=== PATIENT | female | born 1965 | race Caucasian/White ===

== ENCOUNTER 2025-02-11 11:38 | Emergency (ER) | payer OTHER, BC, SELFPAY ==
[2025-02-11] VITALS (16 sets, daily range): BP systolic 133–168; BP diastolic 71–85; PULSE 56–72; RESP 13–19; TEMP 36.8; O2SAT 92–98; BMI 27.1
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
--- NOTE | 2025-02-11 13:11 | CRLHL7_ITS ---
For Patients: As a result of the Century Cures Act, medical imaging exams and procedure reports are released immediately into your electronic medical record. You may view this report before your referring provider. If you have questions, please contact your health care provider. Indication: lower central back pain on exam Technique: Noncontrast axial CT of the thoracic spine with coronal and sagittal reformats are provided. Comparison: No prior studies available for comparison at this institution. Findings: Normal thoracic spine alignment. There is mild loss of T4 and T5 vertebral height with sclerotic changes along the superior endplates compatible with acute compression fractures. Less than 10 percent loss of vertebral height. No retropulsed fragment. No aggressive osseous lesions. Mild atelectasis at lung bases. No suspicious disc bulge or herniation. No significant spinal canal stenosis or neural foramina narrowing. Bilateral parapelvic renal cysts. Impression : 1. Acute T4 and T5 superior endplate compression fractures with minimal loss of vertebral body height. No retropulsed fragment. 2. No significant spinal canal stenosis or neural foraminal narrowing. 3. Bilateral parapelvic renal cysts. Please note that all CT scans at this facility use dose modulation, iterative reconstruction, and/or weight-based dosing when appropriate to reduce radiation dose to as low as reasonably achievable. Dictated by Alton Finn MD @ 02/11/2025 2:58:39 PM (Electronically Signed)
[2025-02-11 14:10] LABS: Hematocrit 43.3 % (33.0-51.0); Hemoglobin* 14.4 gm/dL (12.0-16.0); Immature Granulocytes Abs Auto 0.05 K/uL (0.00-0.30); Immature Granulocytes Pct Auto 0.6 %; Lymphocytes Absolute Auto 1.99 K/uL (0.90-2.90); Mean Corpuscular HGB Conc 33 gm/dL (32-36); Mean Corpuscular Hemoglobin 30 pg (26-34); Mean Corpuscular Volume 91 fL (80-100); RDW Coefficient of Variation % 12.4 % (11.5-15.5); Red Blood Count 4.75 m/uL (4.00-5.20); White Blood Count* 9.00 K/uL (4.50-11.00)
[2025-02-11 14:13] LABS: Albumin* 4.1 g/dL (3.3-5.0); Chloride* 103 mmol/L (96-114); Potassium* 3.8 mmol/L (3.6-5.1); Sodium* 135 mmol/L (135-149)
[2025-02-11 14:16] LABS: Alanine Aminotransferase* 25 U/L (4-35); Alkaline Phosphatase* 108 U/L (40-150); Anion Gap 5 mEq/L (7-15); Aspartate Amino Transferase* 27 U/L (12-35); Bilirubin Direct* 0.2 mg/dL (0.0-0.5); Bilirubin Total* 1.2 mg/dL (0.1-1.5); Blood Urea Nitrogen* 16 mg/dL (7-30); Carbon Dioxide* 27 mmol/L (20-32); Creatinine* 0.6 mg/dL (0.5-1.5); Est. Creatinine Clearance* 80.83; Estimated Glomerular Filt Rate 104 ml/min; Slide Review Reflex No; Total Protein* 7.2 g/dL (6.0-8.3)
[2025-02-11 14:17] LABS: Calcium* 9.5 mg/dL (8.4-10.6); Glucose* 187 mg/dL (60-115)
[2025-02-11 14:27] LABS: NT Pro B Type NatriureticPept* 121 pg/mL (See Note)
[2025-02-11] MEDS: ONDANSETRON 2 MG/ML inj 4 MG IVP (14:40)
--- OUTSIDE RECORDS SUMMARY | 2025-02-11 14:45 | XMS_ITS | Clinical Summary ---
Author Organization [facility] Address [address] [place] [address] Care Team Providers Care Equity Holder Name Role Phone Evy You PA-C, Miesha Primary Care Provider [phone]- [phone] Source Comments You are receiving this document as you are listed as the primary care provider,follow-up provider, or the patient has been referred to you for consultation.This is in compliance with the Medicare andMedicaid EHR Incentive Program,which states Providers who transition their patient to another setting of careor provider of care or refers their patient to another provider of care shouldprovide summary care record for each transition of care or referral. [facility] Allergies Active Allergy Reactions Criticality Noted Date Comments Hydrocodone-Acetaminophen Rash 09/21/2006 Medications nicotine (NICORETTE) 2 MG gum Use as directed 30 Each 6 03/12/2016 Active sertraline (ZOLOFT) 100 MG tablet TAKE 1 TABLET DAILY (EVERY 24 HOURS) 90 Tab 3 06/02/2016 Active acyclovir (ZOVIRAX) 200 MG capsule TAKE ONE CAPSULE BY MOUTH 5 TIMES A DAY NEEDED FOR UPTO 10 DAYS 50 Cap 2 06/30/2016 Active Active Problems Problem Noted Date Diagnosed Date Cyst of perineum of female 08/24/2014 Overview (01/15/2016): 4 mm, NT, firm at introitus. Benign appearing Depression 08/21/2014 Anxiety 08/21/2014 Tobacco use 09/27/2013 Herpes labialis 10/20/2011 Resolved Problems Problem Noted Date Diagnosed Date Resolved Date Anxiety state 07/11/2009 10/20/2011 Overview (02/03/2017): Anxiety NOS Depressive disorder 02/10/2006 10/20/19 12 Overview (02/03/2017): Depression NOS Condyloma acuminatum 02/10/2006 013 Overview (02/03/2017): Condyloma HPV Tobacco use disorder 02/10/2006 012 Overview (02/03/2017): Tobacco Abuse Immunizations Immunization Administration Dates Next Due Flu Vac Preserv Free (3+yrs) 07/19/2006 HepB Adult (Engerix-B, 20+ y rs, 3 dose series) 02/10/2006,09/23/2004,06/18/2004 Influenza IIV4 (Quadrivalent) 0.5mL (69273) 02/13 TDAP (ADACEL) 10/20/2011 Td 01/02/1999 Family History Medical History Relation Name Comments Coronary Artery Disease Father quad bypass Hypertension Father Coronary Artery Disease Mother Diabetes Mother Hypertension Mother Diabetes Other multiple siblin gs Lung Disease Sister 2 2009 decreased from copd complication Cancer, Breast Negative Family History Cancer, Colon Negative Family History Hyperlipidemia Negative Family History Osteoporosis Negative Family History Thyroid Disorder Negative Family History Relation Name Status Comments Father 2009 Mother 2011 Other Sister 1 2009 from copd complications Sister 2 Social History Tobacco Use Types Packs/Day Years Used Date Smoking Tobacco: Some Days Cigarettes Smokeless Tobacco: Never Tobacco Cessation:Ready to Q uit: Yes Comments:Quit smokin Alcohol Use Standard Drinks/Week Comments No 1 (1 standard drink = 0.6 oz pur e alcohol) 1x a month or less Comments No Sex and Gender Information Value Date Recorded Sex Assigned at Not on file Legal Sex Female 4:47 AM CDT Gender Identity Not on file Sexual Orientation Not on file 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 file Not on file Not on file Last Filed Vital Signs Vital Sign Reading Time Taken Comments Blood Pressure 133/60 04/30/2016 1:10 PM SLABBING MACHINE OPERATOR Pulse 62 04/30/2016 1:10 PM SLABBING MACHINE OPERATOR Temperature 37.2 C (99 F) 10/10/2013 9:38 AM CDT Respiratory Rate 12 04/30/2016 1:10 PM SLABBING MACHINE OPERATOR Oxygen Saturation 96% 04/30/2016 1:10 PM SLABBING MACHINE OPERATOR Inhaled Oxygen Concentration - - Weight 67.6 kg (149 lb) 04/30/2016 12:26 PM SLABBING MACHINE OPERATOR Height 157.5 cm (5' 2) 04/30/2016 12:26 PM SLABBING MACHINE OPERATOR Body Mass Index 27.25 04/30/2016 12:26 PM SLABBING MACHINE OPERATOR Plan of Treatment Health Maintenance Due Date Last Done Comments Adult Preventive Visit 06/08/1997 06/08/1996 Cervical Cancer Screening Due 09/15/2012 09/14/2012, 10/20/2011, 02/10/2006, Additional history exists Mammogram 08/18/2015 08/17/2014 (Completed) Pneumococcal Vaccine 50+ Yrs (1 of 1 - PCV) 2016 Zoster/Shingles Vaccine (1 of 2) 2016 Cholesterol 02/02/2020 02/01/2015, 05/0 01/2012, 02/22/2006, Additional history exists Colonoscopy 04/30/2021 04/30/2016 DTaP/Tdap/Td Vaccine (2 - Tdap) 10/19/2021 10/20/2011, 01/02/1999 COVID-19 Vaccine (1 - 2023- season) 2024 Influenza Vaccine (#1) 2025 03/12/2016, 2006 HIV Screening (Preventive Services) Completed 06/18/2004 Hep C Screening (Preventive Services) Completed 06/18/2004 HepB Vaccine Completed 02/10/2006, 09/12, 06/18/2004 HepA Vaccine Aged Out No longer eligi ble based on patient's age to complete this topic Hib Vaccine Aged Out No longer eligi ble based on patient's age to complete this topic IPV (Polio) Vaccine Aged Out No longe r eligible based on patient's age to complete this topic MCV4 Vaccine Aged Out No longer eligi ble based on patient's age to complete this topic Meningococcal B Vaccine Aged Out No l onger eligible based on patient's age to complete this topic Procedures Procedure Name Priority Date/Time Associated Diagnosis Comments ENDOSCOPY, COLON, SCREENING/DIAGNOSTIC Routine 04/30/2016 6:29 AM SLABBING MACHINE OPERATOR Screen for colon cancer LIPID PANEL & DIRECT LDL (IF NEEDED) Routine 02/01/2015 12:53 PM CDT Well adult exam ANATOMICAL PATH LIQUID BASED Routine 09/14/2012 2:13 PM CDT HIV ANTIBODY Routine 06/18/2004 5:02 PM SLABBING MACHINE OPERATOR HEPATITIS C ANTIBODY, WITH REFLEX (ANTI-HCV) Routine 06/18/2004 5:02 PM SLABBING MACHINE OPERATOR from Last 3 Months or Most Recently Relevant to Health Maintenance Results * Endoscopy, colon, diagnostic (04/30/2016 6:29 AM SLABBING MACHINE OPERATOR) Anatomical Region Laterality Modality Other 04/30/2016 6:29 AM SLABBING MACHINE OPERATOR Narrative 04/30/2016 6:29 AM SLABBING MACHINE OPERATOR Patient Name: Keshia Rodgers Procedure Date: 04/30/2016 6:29 AM Date of : 1965 Admit Type: Outpatient Age: 51 Gender: Female Note Status: Finalized Attending MD: Yordy Reyna MD Procedure: Colonoscopy and polypectomy Indications: Colon cancer screening in patient at increased risk: Family history of 1st-degree relative with colon polyps before age 60 years (brother at age 50, also sister at age 67) Providers: Yordy Reyna MD, Kaylee Estrada RN Referring MD: Miesha Gorman MD Medicines: Midazolam 4 mg IV, Fentanyl 150 micrograms IV Complications: No immediate complications. Estimated blood loss: None. Procedure: Pre-Anesthesia Assessment: - ASA Grade Assessment: II - A patient with mild systemic disease. - After reviewing the risks and benefits, the patient was deemed in satisfactory condition to undergo the procedure. - The anesthesia plan was to use moderate sedation/analgesia (conscious sedation). - Immediately prior to administration of medications, the patient was re-assessed for adequacy to receive sedatives. - Sedation was administered by an endoscopy nurse. The sedation level attained was moderate. - The heart rate, respiratory rate, oxygen saturations, blood pressure, adequacy of pulmonary ventilation, and response to care were monitored throughout the procedure. - The physical status of the patient was re-assessed after the procedure. After I obtained informed consent, the scope was passed under direct vision. Throughout the procedure, the patient's blood pressure, pulse, and oxygen saturations were monitored continuously. The [id number] was introduced through the anus and advanced to the terminal ileum, with identification of the appendiceal orifice and IC valve. The colonoscopy was performed without difficulty. The patient tolerated the procedure well. The quality of the bowel preparation was excellent. Findings: The perianal and digital rectal examinations were normal. The terminal ileum appeared normal. A few medium-mouthed diverticula were found in the sigmoid colon. There was no evidence of diverticular bleeding. Three flat polyps were found in the distal sigmoid colon. The polyps were 2 to 3 mm in size. These polyps were removed with a cold biopsy forceps. Resection and retrieval were complete. Verification of patient identification for the specimen was done by the physician and nurse. Estimated blood loss: none. The exam was otherwise without abnormality on direct and retroflexion views. Multiple small angioectasias without bleeding were found in the proximal ascending colon and distal rectum. Impression: - The examined portion of the ileum was normal. - Diverticulosis in the sigmoid colon. There was no evidence of diverticular bleeding. - Three 2 to 3 mm polyps in the distal sigmoid colon. Resected and retrieved. - The examination was otherwise normal on direct and retroflexion views. Recommendation: - If any polyp is villous or all three are adenomatous, colonoscopy in three years; in any other case, in five years. Procedure Code(s): --- Professional --- 61634, Colonoscopy, flexible; with biopsy, single or multiple Diagnosis Code(s): --- Professional --- K57.30, Diverticulosis of large intestine without perforation or abscess without bleeding D12.5, Benign neoplasm of sigmoid colon Z83.71, Family history of colonic polyps CPT copyright 2014 [employer]. All rights reserved. The codes documented in this report are preliminary and upon community education specialist review may be revised to meet current compliance requirements. Yordy Reyna MD 04/30/2016 1:17:05 PM Number of Addenda: 0 Note Initiated On: 04/30/2016 6:29 AM Endoscopy Report Procedure Note Yordy Reyna MD - 04/30/2016 Patient Name: Kehsia Rodgers Procedure Date: 04/30/2016 6:29 AM Date of : 1965 Admit Type: Outpatient Age: 51 Gender: Female Note Status: Finalized Attending MD: Yordy Reyna MD Procedure: Colonoscopy and polypectomy Indications: Colon cancer screening in patient at increased risk: Family history of 1st-degree relative with colon polyps before age 60 years (brother at age 50, also sister at age 67) Providers: Yordy Reyna MD, Kaylee Estrada RN Referring MD: Miesha Gorman MD Medicines: Midazolam 4 mg IV, Fentanyl 150 micrograms IV Complications: No immediate complications. Estimated blood loss: None. Procedure: Pre-Anesthesia Assessment: - ASA Grade Assessment: II - A patient with mild systemic disease. - After reviewing the risks and benefits, the patient was deemed in satisfactory condition to undergo the procedure. - The anesthesia plan was to use moderate sedation/analgesia (conscious sedation). - Immediately prior to administration of medications, the patient was re-assessed for adequacy to receive sedatives. - Sedation was administered by an endoscopy nurse. The sedation level attained was moderate. - The heart rate, respiratory rate, oxygen saturations, blood pressure, adequacy of pulmonary ventilation, and response to care were monitored throughout the procedure. - The physical status of the patient was re-assessed after the procedure. After I obtained informed consent, the scope was passed under direct vision. Throughout the procedure, the patient's blood pressure, pulse, and oxygen saturations were monitored continuously. The [id number] was introduced through the anus and advanced to the terminal ileum, with identification of the appendiceal orifice and IC valve. The colonoscopy was performed without difficulty. The patient tolerated the procedure well. The quality of the bowel preparation was excellent. Findings: The perianal and digital rectal examinations were normal. The terminal ileum appeared normal. A few medium-mouthed diverticula were found in the sigmoid colon. There was no evidence of diverticular bleeding. Three flat polyps were found in the distal sigmoid colon. The polyps were 2 to 3 mm in size. These polyps were removed with a cold biopsy forceps. Resection and retrieval were complete. Verification of patient identification for the specimen was done by the physician and nurse. Estimated blood loss: none. The exam was otherwise without abnormality on direct and retroflexion views. Multiple small angioectasias without bleeding were found in the proximal ascending colon and distal rectum. Impression: - The examined portion of the ileum was normal. - Diverticulosis in the sigmoid colon. There was no evidence of diverticular bleeding. - Three 2 to 3 mm polyps in the distal sigmoid colon. Resected and retrieved. - The examination was otherwise normal on direct and retroflexion views. Recommendation: - If any polyp is villous or all three are adenomatous, colonoscopy in three years; in any other case, in five years. Procedure Code(s): --- Professional --- 54701, Colonoscopy, flexible; with biopsy, single or multiple Diagnosis Code(s): --- Professional --- K57.30, Diverticulosis of large intestine without perforation or abscess without bleeding D12.5, Benign neoplasm of sigmoid colon Z83.71, Family history of colonic polyps CPT copyright 2014 [employer]. All rights reserved. The codes documented in this report are preliminary and upon community education specialist review may be revised to meet current compliance requirements. Yordy Reyna MD 04/30/2016 1:17:05 PM Number of Addenda: 0 Note Initiated On: 04/30/2016 6:29 AM Endoscopy Report Miesha You PA-C ET GI PROCEDURE ORDERABLES Final Result * Lipid Panel and Direct LDL(If Needed) (02/01/2015 12:53 PM CDT) Cholesterol 178 0 - 200 mg/dL HP CONVERSION Triglycerides 48 0 - 149 mg/dL HP CONVERSION HDL Cholesterol 46 >39 mg/dL HP CONVERSION Cholesterol/HDL Ratio Screen 3.9 HP CONVERSION LDL Calculated 122 19 - 130 mg/dL HP CONVERSION Hours Fasting 12.0 HP CONVERSION 02/01/2015 12:5 3 PM CDT 02/01/2015 5:38 PM CDT Narrative HP CONVERSION - 02/01/2015 6:18 PM CDT Performed at [facility], [address] [place], [place] [id number] Miesha You PA-C LAB_1 Final Resu lt HP CONVERSION * Pap Smear (09/14/2012 2:13 PM CDT) 09/14/2012 2:13 PM CDT Narrative HP CONVERSION - 09/21/2012 3:54 PM CDT FINAL GYNECOLOGICAL CYTOLOGY REPORT Pathology #: [id number] Date Obtained: 09/14/2012 Date Received: 09/15/2012 INTERPRETATION/RESULTS: Negative for Intraepithelial Lesion or Malignancy COMMENTS: HPV results to follow. SPECIMEN ADEQUACY: Satisfactory for Evaluation. Endocervical cells/transformation zone component present. Verified on 09/21/2012 by JUANA MARION MD (electronic signature) CLINICAL NOTES: LMP: Not Stated LIQUID BASED PAP SMEAR SPECIMEN TYPE: CERVICAL AND HPV REGARDLESS OF PAP RESULT PLEASE NOTE: The pap smear is a screening test designed to aid in the detection of cervical cancer and its precursor lesions. It is not a diagnostic procedure and should not be used as the sole means of detecting cervical cancer. Both false-positive and false-negative reports may occur. End of Report Transcriptions 07/24/2016 8:23 AM CSTNotes Recorded by Jacqueline Arndt PA-C on 09/23/2012 at 7:33 AMReviewed pap and hpv testing, letter done, sent to staff for printing and distribution. Jacqueline Arndt PA-C LAB_1 Final Result Performing Organization Address City/[facility]/ZIP Co de Phone Number HP CONVERSION * HIV Antibody (06/18/2004 5:02 PM SLABBING MACHINE OPERATOR) HIV 1/HIV 2 Non Reac Non Reac HP CONVERSION 06/18/2004 5:02 PM SLABBING MACHINE OPERATOR Rosalie Pritchett MD LAB_1 Missy l Result HP CONVERSION * Hepatitis C Antibody, with Reflex (06/18/2004 5:02 PM SLABBING MACHINE OPERATOR) Hepatitis C Antibody Non Reac Non Reac HP CONVERSION 06/18/2004 5:02 PM SLABBING MACHINE OPERATOR us Rosalie Pritchett MD LAB_1 Missy vizcarra Result HP CONVERSION from Last 3 Months or Most Recently Relevant to Health Maintenance Advance Directives * Full Code (Latest Code Status on File) Date Activated Date Inactivated Comments 10/03/2013 9:24 AM 10/03/2013 3:23 PM Care Teams Equity Holder Relationship Specialty Start Date End Date Miesha Ratliff PA-C [address] [facility] [address] [place] [address] PCP - General 09/13/10
--- OUTSIDE RECORDS SUMMARY | 2025-02-11 14:45 | XMS_ITS | Encounter Summary ---
Author Organization [email or web address] Address [address] [address] Care Team Providers Care Curing Bin Operator Name Role Phone Evy You PA-C, Maria Primary Care Provider +1- [phone] Encounter Details Date Type Department Care Team (Latest Contact Info) Description 11/24/1994 Orders Only Bill Cheng MD [address] [place], [place] [id number] Social History Tobacco Use Types Packs/Day Years Used Date Smoking Tobacco: Never Assessed Comments Unknown Sex and Gender Information Value Date Recorded Sex Assigned at Not on file Legal Sex Female 4:47 AM CDT Gender Identity Not on file Sexual Orientation Not on file documented as of this encounter Plan of Treatment Not on file documented as of this encounter Visit Diagnoses Not on filedocumented in this encounter Care Teams Curing Bin Operator Relationship Specialty Start Date End Date Miesha Ratliff PA-C [address] [facility] [address] [place] [address] PCP - General 09/13/10 documented as of this encounter
--- OUTSIDE RECORDS SUMMARY | 2025-02-11 14:45 | XMS_ITS | Encounter Summary ---
Author Organization [employer] Address [address] [address] Care Team Providers Care Dredge Deckhand Name Role Phone Evy You PA-C, Maria Primary Care Provider +1- [phone] Encounter Details Date Type Department Care Team (Latest Contact Info) Description 05/14/1995 Orders Only Juanita Mosley APRN, CNM [address] [facility] [address] [place] [id number] Social History Tobacco Use Types Packs/Day Years [...] on filedocumented in this encounter Care Teams Dredge Deckhand Relationship Specialty Start Date End Date Miesha Ratliff PA-C [address] [facility] [address] [facility] [place] [address] PCP - General 09/13/10 documented as of this encounter
--- OUTSIDE RECORDS SUMMARY | 2025-02-11 14:45 | XMS_ITS | Clinical Summary ---
Author Organization [employer] [facility] Address [address] [place] [address] Care Team Providers Care Paint Roller Covers Supervisor Name Role Phone None Primary Care Provider Unavailabl e Allergies Active Allergy Reactions Criticality Noted Date Comments Hydrocodone Rash 04/15/2017 Oxycodone Headache 07/08/2017 Medications sertraline (ZOLOFT) 100 mg tablet Take 150 mg by mouth once daily. 06/02/2016 Active acyclovir (ZOVIRAX) 200 mg capsule Take 200 mg by mouth 5 times daily. As needed 06/30/2016 Active ferrous sulfate, 65 mg elemental, (IRON) tablet Take 325 mg by mouth once daily with a meal. Active PSYLLIUM SEED, WITH DEXTROSE, (FIBER ORAL) Take by mouth. Active meloxicam 15 mg tabletIndicatio ns:Plantar fasciitis of right foot Take 1 Tablet (15 mg) by mouth once daily. 30 Tablet 01/03/2025 Active Problems Problem Noted Date Diagnosed Date Complete tear of right rotator cuff 06/24/2017 Resolved Problems Problem Noted Date Diagnosed Date Resolved Date Incomplete tear of right rotator cuff 04/15/2017 06/24/2017 Encounters Date Type Department Care Team Description 01/03/2025 2:50 PM CDT Ancillary Procedure [facility] [address] [address] 01/03/2025 2:45 PM CDT Office Visit [facility] [address] [address] Blayne Bunch MD Foot Pain/problem (Right foot ) 01/03/2025 Travel from Last 3 Months Family History Medical History Relation Name Comments Cancer-breast No Family History Cancer-colon No Family History Cancer-ovarian No Family History Cancer-prostate No Family History Social History Tobacco Use Types Packs/Day Years Used Date Smoking Tobacco: Former Cigarettes Q uit: 08/23/2016 Smokeless Tobacco: Never Alcohol Use Standard Drinks/Week Comments Yes 0 (1 standard drink = 0.6 oz pur e alcohol) rarely Comments Unknown Sex and Gender Information Value Date Recorded Sex Assigned at Not on file Legal Sex Female 6:50 AM NEWS DIRECTOR Gender Identity Not on file Sexual Orientation Not on file Obstetrics History Last Filed Vital Signs Vital Sign Reading Time Taken Comments Blood Pressure 120/68 09/16/2017 2:01 PM CDT Pulse 81 06/22/2017 12:00 PM NEWS DIRECTOR Temperature 36.7 C (98 F) 06/22/2017 12:00 PM NEWS DIRECTOR Respiratory Rate 16 06/22/2017 12:00 PM NEWS DIRECTOR Oxygen Saturation 93% 06/22/2017 12:00 PM NEWS DIRECTOR Inhaled Oxygen Concentration - - Weight 83 kg (183 lb) 09/16/2017 2:01 PM CDT Height 160 cm (5' 3) 06/21/2017 9:00 AM NEWS DIRECTOR Body Mass Index 32.42 06/21/2017 9:00 AM NEWS DIRECTOR Plan of Treatment Health Maintenance Due Date Last Done Comments Tetanus booster 1977 Depression screening for age 12+ 1978 HIV for age 15-65 1981 Hepatitis C screening for age 18-79 1984 Hepatitis B series for 19+ ( 1 of 3 - 19+ 3-dose series) 1985 Pap test for age 21-65 1987 Colonoscopy through age 75 2011 Lipids for age 45-75 2011 Mammogram for age 45-75 08/18/2015 08/17/2014 Pneumococcal series for age 50+ (1 of 1 - PCV) 2016 Zoster (shingles) series for age 50+ (1 of 2) 2016 BMI (ht and wt on same day) for age 18+ 04/15/2018 1 06/15/2016 COVID-19 vaccine series ( season) 2024 02/19/2021, 01/22/2021 Influenza Vaccine (#1) 2025 RSV vaccine for adults or pr egnancy (1 - 1-dose 75+ series) 2041 Procedures Procedure Name Priority Date/Time Associated Diagnosis Comments XR FOOT 3 VIEWS RIGHT Routine 01/03/2025 2:52 PM CDT Chronic foot pain, right XR MAMMO BILAT SCREEN FFDM (IA) Routine 08/17/2014 3:38 PM NEWS DIRECTOR Other screening mammogram from Last 3 Months or Most Recently Relevant to Health Maintenance Results * XR FOOT 3 VIEWS RIGHT (01/03/2025 2:52 PM CDT) Anatomical Region Laterality Modality FEET, FOOT R Digital Radiogra phy 01/08/2025 7:46 AM CDT Impressions 01/08/2025 7:46 AM CDT 1. Hallux valgus with bunion. 2. Multi partite medial sesamoid bone. 3. Calcaneal spurring. Dictated by Rob Cedeno MD @ 01/08/2025 7:46:29 AM (Electronically Signed) Narrative 01/08/2025 7:46 AM CDT For Patients: As a result of the Cures Act, medical imaging exams and procedure reports are released immediately into your electronic medical record. You may view this report before your referring provider. If you have questions, please contact your health care provider. HISTORY: Chronic right foot pain. TECHNIQUE: Three views of the right foot. COMPARISON: No prior. FINDINGS: Mild hallux valgus with bunion. Multi partite medial sesamoid bone. Lateral sesamoid bone intact. Plantar calcaneal spur. Spurring at the Achilles attachment to posterior calcaneus. No significant joint space narrowing. No acute fracture. Procedure Note Rob Cedeno MD - 01/08/2025 For Patients: As a result of the Cures Act, medical imagingexams and procedure reports are released immediately into your electronicmedical record. You may view this report before your referring provider.If you have questions, please contact your health care provider. HISTORY: Chronic right foot pain. TECHNIQUE: Three views of the right foot. COMPARISON: No prior. FINDINGS: Mild hallux valgus with bunion. Multi partite medial sesamoid bone.Lateral sesamoid bone intact. Plantar calcaneal spur. Spurring at theAchilles attachment to posterior calcaneus. No significant joint spacenarrowing. No acute fracture. IMPRESSION: 1. Hallux valgus with bunion. 2. Multi partite medial sesamoid bone. 3. Calcaneal spurring. Dictated by Rob Cedeno MD @ 01/08/2025 7:46:29 AM (Electronically Signed) us Blayne Bunch MD GENERAL IMAGING Final Result * XR MAMMO BILAT SCREEN FFDM (08/17/2014 3:38 PM NEWS DIRECTOR) Anatomical Region Laterality Modality BREASTS, Breast Left, Breast Right Bilateral Mammography Impressions 08/18/2014 9:38 AM NEWS DIRECTOR There is no radiographic evidence for malignancy. Recommend annual mammograms. A lay language report of this examination will be provided to the patient. MAMMOGRAM ASSESSMENT: ACR 1 Negative Narrative 08/18/2014 9:38 AM NEWS DIRECTOR XR MAMMO BILAT SCREEN FFDM [G0202.0] CLINICAL HISTORY: This is an asymptomatic 49 y.o. patient. INDICATION FOR EXAM: Mammogram Screening. TECHNIQUE: CC & MLO views were obtained. This digital study was evaluated with the assistance of Computer-Aided Detection. COMPARISON FILM: Yes 07/04/04 LINDSAY LEWIS 02/22/06 LINDSAY LEWIS FINDINGS: Mammographically, the breast tissue has scattered fibroglandular densities. There are no dominant masses, suspicious micro calcifications or areas of architectural distortion. Procedure Note Mike Lawson MD - 08/18/2014 XR MAMMO BILAT SCREEN FFDM [G0202.0] CLINICAL HISTORY: This is an asymptomatic 49 y.o. patient. INDICATION FOR EXAM: Mammogram Screening. TECHNIQUE: CC & MLO views were obtained. This digital study was evaluatedwith the assistance of Computer-Aided Detection. COMPARISON FILM: Yes 07/04/04 LINDSAY GRIMESLLET 02/22/06 LINDSAY LEWIS FINDINGS: Mammographically, the breast tissue has scatteredfibroglandular densities. There are no dominant masses, suspicious microcalcifications or areas of architectural distortion. IMPRESSION: There is no radiographic evidence for malignancy. Recommendannual mammograms. A lay language report of this examination will be provided to the patient. MAMMOGRAM ASSESSMENT: ACR 1 Negative Miesha Holguin Evy ROSARIO MAMMO Final Result from Last 3 Months or Most Recently Relevant to Health Maintenance Insurance [facility] Advance Directives * Full Code (Latest Code Status on File) Date Activated Date Inactivated Comments 06/21/2017 9:59 AM 06/21/2017 4:38 PM Question Answer Comments Code Status Discussion: Per Existing Order * Full Code Date Activated Date Inactivated Comments 06/21/2017 8:15 AM 06/21/2017 9:59 AM Question Answer Comments Code Status Discussion: Per Existing Order Care Teams Paint Roller Covers Supervisor Relationship Specialty Start Date End Date None . PCP - General 01/03/25
--- OUTSIDE RECORDS SUMMARY | 2025-02-11 14:45 | XMS_ITS | Encounter Summary ---
Author Organization [employer] Address [address], [place] [address] Care Team Providers Care Gynaecological Oncologist Name Role Phone Evy You PA-C, Maria Primary Care Provider +1- [phone] Encounter Details Date Type Department Care Team (Latest Contact Info) Description 07/28/1996 Orders Only Jay Lee MD [address] [place], [place] [id number] Social History Tobacco Use Types Packs/Day Years [...] on filedocumented in this encounter Care Teams Gynaecological Oncologist Relationship Specialty Start Date End Date Miesha Ratliff PA-C [address] [facility] [address] [place] [address] PCP - General 09/13/10 documented as of this encounter
--- OUTSIDE RECORDS SUMMARY | 2025-02-11 14:45 | XMS_ITS | Encounter Summary ---
Author Organization [employer] Address [address] [address] Care Team Providers Care Federal District Clerk Name Role Phone Evy You PA-C, Maria Primary Care Provider +1- [phone] Encounter Details Date Type Department Care Team (Latest Contact Info) Description 07/22/1994 Orders Only Danny Khari [address] [address], [address] Social History Tobacco Use Types Packs/Day Years [...] on filedocumented in this encounter Care Teams Federal District Clerk Relationship Specialty Start Date End Date Miesha Ratliff PA-C [address] [facility] [address] [place] [address] PCP - General 09/13/10 documented as of this encounter
--- OUTSIDE RECORDS SUMMARY | 2025-02-11 14:45 | XMS_ITS | Encounter Summary ---
Author Organization [employer] Address [address], [place] [address] Care Team Providers Care Certified Master Safe Technician Name Role Phone Evy You PA-C, Maria Primary Care Provider +1- [phone] Encounter Details Date Type Department Care Team (Late st Contact Info) Description 09/14/1995 Orders Only Inactivate [address] [place] [address] Mali Steen [address] [place], [place] [address] Social History Tobacco Use Types Packs/Day Years [...] on filedocumented in this encounter Care Teams Certified Master Safe Technician Relationship Specialty Start Date End Date Miesha Ratliff PA-C [address] [facility] [address] [place] [address] PCP - General 09/13/10 documented as of this encounter
--- OUTSIDE RECORDS SUMMARY | 2025-02-11 14:45 | XMS_ITS | Encounter Summary ---
Author Organization [employer] Address [address] [place] [address] Care Team Providers Care Senior Contracts Manager Name Role Phone Evy You PA-C, Maria Primary Care Provider +1- [phone] Encounter Details Date Type Department Care Team (Latest Contact Info) Description 06/08/1996 Orders Only Keshia Molina Social History Tobacco Use Types Packs/Day Years [...] on filedocumented in this encounter Care Teams Senior Contracts Manager Relationship Specialty Start Date End Date Miesha Ratliff PA-C [address] [facility] [address] [place] [address] PCP - General 09/13/10 documented as of this encounter
== END 2025-02-11 16:51 | disposition home or self-care (01) ==
PROVIDERS: Emergency Provider Family Medicine
DX: S22.040A Wedge compression fracture of fourth thoracic vertebra, initial encounter for closed fracture (principal); S22.41XA Multiple fractures of ribs, right side, initial encounter for closed fracture; V29.99XA Rider (driver) (passenger) of other motorcycle injured in unspecified traffic accident, initial encounter
CPT/HCPCS: 36415; 71260; 72128; 74177; 80053; 82248; 83880; 84484; 85025; 93005; 94761; 96374; 96375; 99284; 99285; A9270; J1885; J2405; J3010; Q9967